=== PATIENT | male | born 2000 | race Two or more races ===

== ENCOUNTER 2023-02-26 17:00 | Outpatient (RCR) | payer OTHER, SELFPAY | END 2023-06-04 15:21 | disposition home or self-care (01) | LOC: HO.PT 17:00 | PROVIDERS: PCP Pediatrics; Visit Provider Student in an Organized Health Care Education/Training Program | DX: S99.911D Unspecified injury of right ankle, subsequent encounter (principal) | CPT/HCPCS: 97110; 97112; 97161; 97530 ==